=== PATIENT | female | born 1975 | race Two or more races ===

== ENCOUNTER 2024-01-11 09:26 | Day surgery (SDC) | payer OTHER ==
[2024-01-03 12:03] VITALS: BMI 18.8
[2024-01-11] MEDS ORDERED: PROPOFOL 40 ML ONE (09:42)
[2024-01-11 10:51] VITALS: RESP 20; TEMP 97.6
[2024-01-11 11:19] VITALS: BP 96/53; PULSE 86
== END 2024-01-11 11:19 | disposition home or self-care (01) ==
LOC: FASU-ENDO 09:26
PROVIDERS: ATTEND Internal Medicine Gastroenterology
PROC: 0DBL8ZX Excision of Transverse Colon, Via Natural or Artificial Opening Endoscopic, Diagnostic (ICD-10-PCS; principal; 2024-01-11 10:10)
DX: Z12.11 Encounter for screening for malignant neoplasm of colon (principal); K64.1 Second degree hemorrhoids; K63.89 Other specified diseases of intestine
CPT/HCPCS: 81025; 88305-TC